=== PATIENT | male | born 1985 | race Caucasian/White ===

== ENCOUNTER 2016-07-17 07:58 | Emergency (ER) | payer SELFPAY ==
[2016-07-17] MEDS ORDERED: METOPROLOL 5 MG/5 ML VIAL IVP STA ×2 (08:20→09:03)
[2016-07-17] MEDS ORDERED: SODIUM CHLORIDE 0.9% 1,000 ML IV ONE ×2 (08:20→09:03)
[2016-07-17] MEDS ORDERED: METOPROLOL 5 MG/5 ML VIAL IVP ONE ×2 (08:29→09:01)
== END 2016-07-17 11:05 | disposition home or self-care (01) ==
DX: R00.0 Tachycardia, unspecified (principal); I48.91 Unspecified atrial fibrillation; I10 Essential (primary) hypertension; Z79.82 Long term (current) use of aspirin; Z87.891 Personal history of nicotine dependence

== ENCOUNTER 2017-03-19 | Emergency (ER) | payer OTHER ==
--- NOTE | 2017-03-19 00:10 | ED Physician Documentation ---
PD HPI CHEST PAIN - Stated complaint Stated Complaint: RAPID HEART RATE - History obtained from History obtained from: Patient - History of Present Illness Timing - onset: How many hours ago (1) Timing - onset during: Rest Timing - duration: Hours (1) Timing - details: Abrupt onset, Still present Quality: Tightness. No: Sharp, Stabbing Location: Left chest Radiation: No: Jaw, Neck, Back Improved by: No: Rest Worsened by: No: Inspiration, Movement Associated symptoms: General Weakness, Palpitations, Other (he says he did have a lot of diet coke over the weekend. No drubs/stimulant use.). No: Diaphoresis , Nausea, Feeling faint / dizzy Similar symptoms before: Diagnosis (paroxysmal atrial fib) Recently seen: Not recently seen (had been to Cardiology (Dr. Mohan in [place] after prior episode of atrial fib. He had ECHO and labs. No EPS studies by description. Has had follow up visits without change in meds. 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 denies: Nausea, Vomiting, Diarrhea Skin: denies: Rash, Lesions PD PAST MEDICAL HISTORY - Past Medical History Cardiovascular: Hypertension, Atrial fibrillation Respiratory: None Neuro: None Endocrine/Autoimmune: None - Past Surgical History Past Surgical History: No - Present Medications Home Medications: Ambulatory Orders Medication Instructions Recorded Confirmed Lisinopril 40 mg PO DAILY 02/20/14 03/19/17 Aspirin [Aspir 81] 81 mg PO DAILY 01/17/15 03/19/17 Diltiazem HCl [Diltiazem 24Hr ER] 300 mg PO DAILY 07/17/16 03/19/17 - Allergies Allergies/Adverse Reactions: Allergies Allergy/AdvReac Type Severity Reaction Status Date / Time No Known Drug Allergies Allergy Verified 02/20/14 15:24 - Social History Does the pt smoke?: No Smoking Status: Former smoker Does the pt drink ETOH?: No Does the pt have substance abuse?: No - Family History Family history: reports: CAD. denies: Sudden , Venous thromboembolism - Immunizations Immunizations are current?: Yes - POLST Patient has POLST: No PD ED PE NORMAL - Vitals Vital signs reviewed: Yes - General General: Alert and oriented X 3, No acute distress, Well developed/nourished - HEENT HEENT: Pharynx benign - Neck Neck: Supple, no meningeal sign, No adenopathy - Cardiac Cardiac: No murmur. No: RRR (irregular and fast at 160-170) - Respiratory Respiratory: Clear bilaterally - Abdomen Abdomen: Soft, Non tender - Derm Derm: Normal color, Warm and dry - Extremities Extremities: No deformity, No tenderness to palpate, Normal ROM s pain, No edema , No calf tenderness / cord - Neuro Neuro: Alert and oriented X 3, No motor deficit, Normal speech Results - Vitals Vitals: Vital Signs - 24 hr 03/19/17 03/19/17 03/19/17 00:11 00:30 00:40 Temperature 36.7 C Heart Rate 167 H 174 H 132 H Respiratory 20 18 18 Rate Blood Pressure 191/107 H 214/180 H 139/76 H O2 Saturation 97 98 97 03/19/17 03/19/17 03/19/17 00:59 01:11 01:56 Temperature 35.5 C L Heart Rate 136 H 75 118 H Respiratory 18 16 18 Rate Blood Pressure 133/63 H 131/90 H 132/61 H O2 Saturation 95 95 97 03/19/17 02:11 Temperature Heart Rate 95 Respiratory 18 Rate Blood Pressure 133/80 H O2 Saturation 97 Oxygen O2 Source Nasal cannula - EKG (time done) 00:09 Rate: Rate (enter#) (173) Rhythm: Atrial fibrillation QRS: Normal Ischemia: ST elevation c/w repol post cardioversion Rate: Rate (enter#) (80) Rhythm: NSR [place]: Normal Intervals: Normal [place] QRS: Normal Ischemia: Normal ST segments, ST elevation c/w repol, T wave inversion (inferior ). No: ST depression Compare to prior EKG: Unchanged from prior EKG (same morphology from July 2016) - Labs Labs: Laboratory Tests 03/19/17 03/19/17 00:17 00:17 WBC 10.9 H RBC 5.61 Hgb 16.1 Hct 46.5 MCV 82.9 MCH 28.7 MCHC 34.6 RDW 12.7 Plt Count 63 L MPV 11.7 H Neut # 6.3 Lymph # 3.0 [place] # 1.1 H Eos # 0.3 Baso # 0.2 H Absolute Nucleated RBC 0.01 Nucleated RBC % 0.1 Sodium 136 Potassium 3.7 Chloride 101 Carbon Dioxide 27 Anion Gap 8.0 BUN 17 Creatinine 0.7 Estimated GFR (MDRD) 130 Glucose 115 H Calcium 9.4 Magnesium 2.0 Total Bilirubin 0.7 AST 21 ALT 41 Alkaline Phosphatase 58 Total Protein 7.9 Albumin 4.9 Globulin 3.0 Albumin/Globulin Ratio 1.6 Lipase 36 Procedures - Cardioversion Attempt 1 Indication: Tachyarrhythmia Risks, benefits, alternatives explained to: Pt Prep: IV, O2, court monitor, Pulse ox, Airway equip Meds: Propofol CS via: Pads, AP approach Sync: Biphasic, 200j (unsuccessful jakob 100 J, but converted with 200 J.) Post cardioversion rhythm: NSR Complications: No: Contact burn, Apnea, Hypotension Performed by: ED MD Departure - Departure Disposition: 01 Home, Self Care Clinical Impression: Atrial fibrillation with rapid ventricular response Condition: Stable Record reviewed to determine appropriate education?: Yes Instructions: ED Afib Follow-Up: [facility] [Provider Group] Comments: Continue your current medications. Drink lots of fluids and stay well- hydrated. Avoid caffeinated beverages. Follow-up with the aws consultant in [place] as intended. Call their office tomorrow for an appointment. Return as needed.
[2017-03-19] MEDS ORDERED: SODIUM CHLORIDE 0.9% 1,000 ML IV ONE (00:23)
[2017-03-19] MEDS ORDERED: METOPROLOL 5 MG/5 ML VIAL IVP STA ×3 (00:23→01:06)
[2017-03-19] MEDS ORDERED: MAGNESIUM SULFATE 2 GRAM 2 GM/50 ML BAG IV ONE (00:24)
[2017-03-19 00:30] LABS: BASOPHILS # (AUTO) 0.2 10^3/uL (0.0-0.1); BASOPHILS % (AUTO) 1.8 %; EOSINOPHILS # (AUTO) 0.3 10^3/uL (0.0-0.7); EOSINOPHILS % (AUTO) 2.7 %; HGB - HEMOGLOBIN 16.1 g/dL (14.0-18.0); LYMPHOCYTES % (AUTO) 27.5 %; MEAN CORPUSCULAR HEMOGLOBIN 28.7 pg (27.0-31.0); MEAN CORPUSCULAR HGB CONC 34.6 g/dL (32.0-36.0); MEAN CORPUSCULAR VOLUME 82.9 fL (80.0-94.0); MEAN PLATELET VOLUME 11.7 fL (7.4-11.4); MONOCYTES # (AUTO) 1.1 10^3/uL (0.0-1.0); MONOCYTES % (AUTO) 9.7 %; NEUTROPHILS # (AUTO) 6.3 10^3/uL (1.5-6.6); NEUTROPHILS % (AUTO) 58.3 %; PLT - PLATELET COUNT 63 10^3/uL (130-450); RED BLOOD COUNT 5.61 10^6/uL (4.70-6.10); RED CELL DISTRIBUTION WIDTH 12.7 % (12.0-15.0); WHITE BLOOD COUNT 10.9 x10^3/uL (4.8-10.8)
[2017-03-19 00:38] LABS: ALBUMIN 4.9 g/dL (3.2-5.5); ALBUMIN/GLOBULIN RATIO 1.6 (1.0-2.2); BILIRUBIN,TOTAL 0.7 mg/dL (0.2-1.0); CALCIUM 9.4 mg/dL (8.5-10.3); CREATININE 0.7 mg/dL (0.6-1.2); TOTAL PROTEIN 7.9 g/dL (6.7-8.2)
[2017-03-19] MEDS ORDERED: PROPOFOL 200 MG/20 ML VIAL IVP STA (01:42)
[2017-03-19] MEDS ORDERED: KETOROLAC 60 MG/2 ML VIAL IVP STA (02:10)
[2017-03-19 03:09] VITALS: BP 123/77
== END 2017-03-19 02:50 | disposition home or self-care (01) ==
LOC: ED
DX: I48.91 Unspecified atrial fibrillation (principal); R94.31 Abnormal electrocardiogram [ECG] [EKG]; I10 Essential (primary) hypertension; Z79.82 Long term (current) use of aspirin; Z87.891 Personal history of nicotine dependence
CPT/HCPCS: 36415; 80053; 83690; 83735; 85025; 92960; 93005; 94770; 96365; 96375; 96376; 99284

== ENCOUNTER 2017-06-21 01:39 | Emergency (ER) | payer OTHER ==
[2017-06-21] MEDS ORDERED: SODIUM CHLORIDE 0.9% 1,000 ML IV ONE (01:50)
[2017-06-21 02:00] LABS: BASOPHILS % (AUTO) 0.4 %; EOSINOPHILS # (AUTO) 0.3 10^3/uL (0.0-0.7); EOSINOPHILS % (AUTO) 3.6 %; HGB - HEMOGLOBIN 14.7 g/dL (14.0-18.0); LYMPHOCYTES # (AUTO) 2.1 10^3/uL (1.5-3.5); LYMPHOCYTES % (AUTO) 25.9 %; MEAN CORPUSCULAR HEMOGLOBIN 29.1 pg (27.0-31.0); MEAN CORPUSCULAR HGB CONC 34.7 g/dL (32.0-36.0); MEAN CORPUSCULAR VOLUME 84.1 fL (80.0-94.0); MEAN PLATELET VOLUME 11.5 fL (7.4-11.4); MONOCYTES # (AUTO) 0.8 10^3/uL (0.0-1.0); MONOCYTES % (AUTO) 9.2 %; NEUTROPHILS % (AUTO) 60.9 %; PLT - PLATELET COUNT 71 10^3/uL (130-450); RED BLOOD COUNT 5.06 10^6/uL (4.70-6.10); RED CELL DISTRIBUTION WIDTH 12.8 % (12.0-15.0); WHITE BLOOD COUNT 8.2 x10^3/uL (4.8-10.8)
[2017-06-21 02:11] LABS: ALBUMIN 4.5 g/dL (3.2-5.5); ALBUMIN/GLOBULIN RATIO 1.6 (1.0-2.2); BILIRUBIN,TOTAL 0.4 mg/dL (0.2-1.0); CALCIUM 9.5 mg/dL (8.5-10.3); CREATININE 0.8 mg/dL (0.6-1.2); TOTAL PROTEIN 7.4 g/dL (6.7-8.2)
[2017-06-21 02:18] LABS: BILIRUBIN,URINE NEGATIVE (NEGATIVE); GLUCOSE, URINE (UA) NEGATIVE (NEGATIVE); KETONES,URINE (UA) NEGATIVE (NEGATIVE); LEUKOCYTE ESTERASE, URINE NEGATIVE (NEGATIVE); NITRITE,URINE NEGATIVE (NEGATIVE); OCCULT BLOOD,URINE NEGATIVE (NEGATIVE); PROTEIN,URINE NEGATIVE (NEGATIVE); UROBILINOGEN,URINE 0.2 (NORMAL) E.U./dL (NORMAL)
[2017-06-21 02:24] LABS: CLARITY,URINE CLEAR (CLEAR)
--- NOTE | 2017-06-21 02:27 | ED Physician Documentation ---
History of Present Illness - Stated complaint Stated Complaint: R SIDE OF BODY HEAVINESS - Chief complaint Chief Complaint: Neuro - History obtained from History obtained from: Patient, Family - History of Present Illness Timing: Today - Additonal information Additional information: Patient is a 31 year old male with a history of A fib who is presenting to the emergency department for "feeling heavy" Patient states that he woke up this morning and he was not feeling well. patient stated that felt like he might pass out. patient denied any headache, nausea, vomiting, weakness, fevers, chills or other symptoms. Review of Systems Constitutional: denies: Fever, Chills, Myalgias, Fatigue, Sweats Eyes: denies: Loss of vision, Decreased vision Ears: reports: Reviewed and negative Nose: denies: Congestion Throat: reports: Reviewed and negative Cardiac: denies: Chest pain / pressure, Palpitations, Calf pain Respiratory: denies: Dyspnea, Cough, Wheezing GI: denies: Abdominal Pain, Nausea, Vomiting : reports: Reviewed and negative Skin: reports: Reviewed and negative Neurologic: reports: Generalized weakness, Near syncope. denies: Focal weakness , Numbness, Syncope, Altered mental status, Headache, LOC Immunocompromised: denies: Immunocompromised PD PAST MEDICAL HISTORY - Past Medical History Cardiovascular: Hypertension, Atrial fibrillation Respiratory: None Neuro: None Endocrine/Autoimmune: None GI: None : None HEENT: None Psych: None Musculoskeletal: None Derm: None - Past Surgical History Past Surgical History: No - Present Medications Home Medications: Ambulatory Orders Medication Instructions Recorded Confirmed Lisinopril 40 mg PO DAILY 02/20/14 03/19/17 Aspirin [Aspir 81] 81 mg PO DAILY 01/17/15 03/19/17 Diltiazem HCl [Diltiazem 24Hr ER] 300 mg PO DAILY 07/17/16 03/19/17 - Allergies Allergies/Adverse Reactions: Allergies Allergy/AdvReac Type Severity Reaction Status Date / Time No Known Drug Allergies Allergy Verified 06/21/17 01:49 - Social History Does the pt smoke?: No Smoking Status: Never smoker Does the pt drink ETOH?: No Does the pt have substance abuse?: No - Immunizations Immunizations are current?: Yes - POLST Patient has POLST: No PD ED PE NORMAL - Vitals Vital signs reviewed: Yes - General General: Alert and oriented X 3, No acute distress, Well developed/nourished - HEENT HEENT: Atraumatic, PERRL, Moist mucous membranes - Neck Neck: Supple, no meningeal sign - Cardiac Cardiac: RRR, No murmur - Respiratory Respiratory: No respiratory distress, Clear bilaterally - Abdomen Abdomen: Soft, Non distended - Derm Derm: Normal color, No rash - Extremities Extremities: No deformity, No calf tenderness / cord - Neuro Neuro: Alert and oriented X 3, procurement professional 2-12 intact, No motor deficit, Normal speech Eye Opening: Spontaneous Motor: Obeys Commands Verbal: Oriented GCS Score: 15 Results - Vitals Vitals: Vital Signs - 24 hr 06/21/17 01:40 Temperature 368 C H Heart Rate 96 Respiratory 18 Rate Blood Pressure 165/88 H O2 Saturation 94 Oxygen O2 Source Room air - EKG (time done) 0146 Rate: Rate (enter#) (93) Rhythm: NSR [place]: Normal Intervals: Normal [place] QRS: Normal Ischemia: ST elevation c/w repol Compare to prior EKG: Unchanged from prior EKG - Labs Labs: Laboratory Tests 06/21/17 06/21/17 06/21/17 01:52 01:52 01:52 WBC 8.2 RBC 5.06 Hgb 14.7 Hct 42.5 MCV 84.1 MCH 29.1 MCHC 34.7 RDW 12.8 Plt Count 71 L MPV 11.5 H Neut # 5.0 Lymph # 2.1 [place] # 0.8 Eos # 0.3 Baso # 0.0 Absolute Nucleated RBC 0.00 Nucleated RBC % 0.0 Sodium 136 Potassium 3.8 Chloride 100 L Carbon Dioxide 26 Anion Gap 10.0 BUN 21 H Creatinine 0.8 Estimated GFR (MDRD) 111 Glucose 133 H Calcium 9.5 Total Bilirubin 0.4 AST 20 ALT 37 Alkaline Phosphatase 58 Troponin I < 0.04 Total Protein 7.4 Albumin 4.5 Globulin 2.9 Albumin/Globulin Ratio 1.6 Lipase 25 TSH Urine Color Urine Clarity Urine pH Ur Specific [place] Urine Protein Urine Glucose (UA) Urine Ketones Urine Occult Blood Urine Nitrite Urine Bilirubin Urine Urobilinogen Ur Leukocyte Esterase Ur Microscopic Review Urine Culture Comments Influenza A (Rapid) Influenza B (Rapid) Influenza Types A,B Ag 06/21/17 06/21/17 06/21/17 01:52 01:57 02:07 WBC RBC Hgb Hct MCV MCH MCHC RDW Plt Count MPV Neut # Lymph # [place] # Eos # Baso # Absolute Nucleated RBC Nucleated RBC % Sodium Potassium Chloride Carbon Dioxide Anion Gap BUN Creatinine Estimated GFR (MDRD) Glucose Calcium Total Bilirubin AST ALT Alkaline Phosphatase Troponin I Total Protein Albumin Globulin Albumin/Globulin Ratio Lipase TSH 4.56 Urine Color YELLOW Urine Clarity CLEAR Urine pH 6.0 Ur Specific [place] <=1.005 Urine Protein NEGATIVE Urine Glucose (UA) NEGATIVE Urine Ketones NEGATIVE Urine Occult Blood NEGATIVE Urine Nitrite NEGATIVE Urine Bilirubin NEGATIVE Urine Urobilinogen 0.2 (NORMAL) Ur Leukocyte Esterase NEGATIVE Ur Microscopic Review NOT INDICATED Urine Culture Comments NOT INDICATED Influenza A (Rapid) Negative Influenza B (Rapid) Negative Influenza Types A,B Ag - PD MEDICAL DECISION MAKING - ED course Complexity details: reviewed old records, reviewed results, re-evaluated patient , considered differential, d/w patient, d/w family ED course: Patient was seen and examined at bedside. patient was in no acute distress. ekg was performed and was normal sinus. IV access was gained and labs were drawn. patient was treated with fluid bolus. Patient's diagnostics were all within normal limits. Further discussion with the patient and his family sounds like he probably has sleep apnea, possibly he had an apneic episode. Patient was otherwise well appearing in no distress and was stable for discharge with outpatient follow up. Departure - Departure Disposition: 01 Home, Self Care Clinical Impression: Near syncope Condition: Good Instructions: ED Apnea Sleep Obstructive Follow-Up: primary,care provider [Other] Comments: Your diagnostics today were all within normal limits. It sounds as if you might have sleep apnea and you will need to follow up with your doctor for a sleep study. You may return to the emergency department at any time for new, worsening or uncontrollable symptoms.
[2017-06-21 03:05] VITALS: BP 159/84
== END 2017-06-21 03:05 | disposition home or self-care (01) ==
LOC: ED 01:39
DX: R55 Syncope and collapse (principal); I48.91 Unspecified atrial fibrillation; I10 Essential (primary) hypertension; Z79.82 Long term (current) use of aspirin
CPT/HCPCS: 36415; 80053; 81001; 81003; 83690; 84443; 84484; 85025; 87086; 87275; 87276; 93005; 96360; 99283

== ENCOUNTER 2017-07-19 23:50 | Emergency (ER) | payer OTHER ==
--- NOTE | 2017-07-20 01:16 | ED Physician Documentation ---
History of Present Illness - Stated complaint Stated Complaint: HIGH BLOOD PRESSURE - Chief complaint Chief Complaint: Cardiac - History obtained from History obtained from: Patient - History of Present Illness Timing: Today Pain level max: 0 Pain level now: 0 Improved by: no ameliorating factors Worsened by: no exacerbating factors - Additonal information Additional information: patient has been monitoring his blood pressure frequently at home. His concern is that the blood pressures have been running high but more concerning to him is that three times the readout was "irregular heart beat". He is concerned that this might represent an arrhythmia such as atrial fibrillation. He does not feel palpitations Review of Systems Eyes: denies: Loss of vision, Decreased vision Cardiac: reports: Reviewed and negative Respiratory: reports: Reviewed and negative PD PAST MEDICAL HISTORY - Past Medical History Cardiovascular: Hypertension, Atrial fibrillation Respiratory: None Neuro: None Endocrine/Autoimmune: None GI: None : None HEENT: None Psych: None Musculoskeletal: None Derm: None - Past Surgical History Past Surgical History: No - Present Medications Home Medications: Ambulatory Orders Medication Instructions Recorded Confirmed Lisinopril 40 mg PO DAILY 02/20/14 03/19/17 Aspirin [Aspir 81] 81 mg PO DAILY 01/17/15 03/19/17 Diltiazem HCl [Diltiazem 24Hr ER] 300 mg PO DAILY 07/17/16 03/19/17 - Allergies Allergies/Adverse Reactions: Allergies Allergy/AdvReac Type Severity Reaction Status Date / Time No Known Drug Allergies Allergy Verified 07/19/17 23:58 - Social History Does the pt smoke?: No Smoking Status: Never smoker Does the pt drink ETOH?: No Does the pt have substance abuse?: No - Immunizations Immunizations are current?: Yes - POLST Patient has POLST: No PD ED PE NORMAL - Vitals Vital signs reviewed: Yes - General General: Alert and oriented X 3, No acute distress, Well developed/nourished - HEENT HEENT: Moist mucous membranes - Neck Neck: Supple, no meningeal sign - Cardiac Cardiac: RRR, No murmur, No gallop, No rub - Respiratory Respiratory: No respiratory distress, Clear bilaterally Results - Vitals Vitals: Vital Signs - 24 hr 07/19/17 07/20/17 23:56 01:39 Temperature 36.9 C Heart Rate 91 96 Respiratory 16 18 Rate Blood Pressure 167/92 H 168/86 H O2 Saturation 98 95 Oxygen O2 Source Room air PD MEDICAL DECISION MAKING - ED course Complexity details: considered differential, d/w patient ED course: Patient's blood pressures are 167/92 and then 168/86. Pulse is regular and 80s. He is asymptomatic in ED. Emergent testing not indicated at this time. I encouraged him to follow up in outpatient setting with his doctor, as they might suggest changes in his current antihypertensive medication regimen Departure - Departure Disposition: 01 Home, Self Care Clinical Impression: Heart palpitations Hypertension Qualifiers: Hypertension type: unspecified Qualified Code(s): I10 - Essential (primary) hypertension Condition: Good Instructions: ED Hypertension Conf Out Of Control, ED Palpitations Discharge Date/Time: 07/20/17 01:40
[2017-07-20 01:40] VITALS: BP 168/86
== END 2017-07-20 01:40 | disposition home or self-care (01) ==
LOC: ED 23:50
DX: R00.2 Palpitations (principal); I10 Essential (primary) hypertension; Z79.82 Long term (current) use of aspirin
CPT/HCPCS: 99283

== ENCOUNTER 2017-12-10 10:29 | Outpatient (CLI) | payer OTHER | END 2017-12-10 10:30 | disposition home or self-care (01) | LOC: SC 10:29 | PROVIDERS: ATTEND Internal Medicine Pulmonary Disease | DX: G47.30 Sleep apnea, unspecified (principal); G47.10 Hypersomnia, unspecified; R06.83 Snoring; E66.9 Obesity, unspecified; Z68.37 Body mass index [BMI] 37.0-37.9, adult | CPT/HCPCS: 99203; 99212 ==

== ENCOUNTER 2018-01-17 03:27 | Outpatient (CLI) | payer OTHER | END 2018-01-17 03:28 | disposition EMS.NT | LOC: EMS 03:27 | PROVIDERS: ATTEND Surgery | DX: R20.2 Paresthesia of skin (principal); R06.02 Shortness of breath ==

== ENCOUNTER 2018-01-17 04:26 | Emergency (ER) | payer OTHER ==
--- NOTE | 2018-01-17 04:39 | ED Physician Documentation ---
History of Present Illness - Stated complaint Stated Complaint: AFIB - Chief complaint Chief Complaint: Cardiac - History obtained from History obtained from: Patient, Family - History of Present Illness Timing: Today - Additonal information Additional information: 32 y/o male with a history of afib with RVR awoke in the middle of the night with a pounding chest and blackburn over his entire body. He states this was more intense than usual for his palpitations but it did not last. He awoke, told his to call 911 and then his symptoms resolved prior to the arrival of medics. He has been in afib with RVR several times in the past 4 years and he has been cardioverted twice. He has had elevated blood pressure as well. He has an appointment to see the sleep doctor next week for a sleep study. 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 He is about to go to 6 days per week with the up coming holiday season. He denies use of caffeine or other stimulants and denies recent alcohol intake. Review of Systems Constitutional: denies: Fever, Chills, Myalgias Eyes: denies: Decreased vision Ears: denies: Ear pain Nose: denies: Rhinorrhea / runny nose, Congestion Throat: denies: Sore throat Cardiac: reports: Palpitations. denies: Chest pain / pressure Respiratory: denies: Dyspnea, Cough GI: reports: Abdominal Pain (at the margin of the ribs on the right with certain movements.). denies: Nausea, Vomiting : denies: Dysuria, Frequency Skin: denies: Rash, Lesions Musculoskeletal: denies: Neck pain, Back pain, Extremity pain Neurologic: denies: Generalized weakness, Focal weakness PD PAST MEDICAL HISTORY - Past Medical History Cardiovascular: Hypertension, Atrial fibrillation Respiratory: None Endocrine/Autoimmune: None GI: None : None HEENT: None Psych: None Musculoskeletal: None Derm: None - Past Surgical History Past Surgical History: No - Present Medications Home Medications: Ambulatory Orders Medication Instructions Recorded Confirmed Lisinopril 40 mg PO DAILY 02/20/14 01/17/18 Aspirin [Aspir 81] 81 mg PO DAILY 01/17/15 01/17/18 Diltiazem HCl [Diltiazem 24Hr ER] 300 mg PO DAILY 07/17/16 01/17/18 Carvedilol 6.25 mg PO BID 01/17/18 01/17/18 Doxazosin [Cardura] 1 tab PO DAILY 01/17/18 01/17/18 - Allergies Allergies/Adverse Reactions: Allergies Allergy/AdvReac Type Severity Reaction Status Date / Time No Known Drug Allergies Allergy Verified 01/17/18 04:34 - Social History Does the pt smoke?: No Smoking Status: Never smoker Does the pt drink ETOH?: No Does the pt have substance abuse?: No - Immunizations Immunizations are current?: Yes - POLST Patient has POLST: No PD ED PE NORMAL - Vitals Vital signs reviewed: Yes (hyertensive ) - General General: Alert and oriented X 3, No acute distress, Well developed/nourished - HEENT HEENT: Atraumatic, PERRL, EOMI - Neck Neck: Supple, no meningeal sign - Cardiac Cardiac: RRR, No murmur - Respiratory Respiratory: No respiratory distress, Clear bilaterally - Abdomen Abdomen: Soft, Non tender - Back Back: No CVA TTP, No spinal TTP - Derm Derm: Normal color, Warm and dry, No rash - Extremities Extremities: No deformity, No edema - Neuro Neuro: Alert and oriented X 3, paper steamer 2-12 intact, No motor deficit, No sensory deficit, Normal speech Eye Opening: Spontaneous Motor: Obeys Commands Verbal: Oriented GCS Score: 15 - Psych Psych: Normal mood, Normal affect Results - Vitals Vitals: Vital Signs - 24 hr 01/17/18 01/17/18 01/17/18 04:30 04:49 05:22 Temperature 36.9 C Heart Rate 74 79 76 Respiratory 19 17 12 Rate Blood Pressure 145/76 H 159/89 H 147/76 H Blood Pressure 159/89 H [Left] Blood Pressure 145/76 H [Right] O2 Saturation 99 98 98 Oxygen O2 Source Room air - EKG (time done) 0432 Rate: Rate (enter#) (72) Rhythm: NSR Ischemia: ST elevation c/w repol Compare to prior EKG: Changed from prior EKG (SPT 06-21-17 rate has decreased) Computer interpretation: Agree with computer - Labs Labs: Laboratory Tests 01/17/18 01/17/18 01/17/18 05:20 05:20 05:20 WBC 5.8 RBC 5.01 Hgb 14.6 Hct 41.9 L MCV 83.7 MCH 29.2 MCHC 34.8 RDW 13.1 Plt Count 67 L MPV 11.4 Neut # (Auto) 3.7 Lymph # (Auto) 1.3 L [place] # (Auto) 0.5 Eos # (Auto) 0.2 Baso # (Auto) 0.0 Absolute Nucleated RBC 0.00 Nucleated RBC % 0.0 Sodium 135 Potassium 4.1 Chloride 101 Carbon Dioxide 26 Anion Gap 8.0 BUN 14 Creatinine 0.7 Estimated GFR (MDRD) 129 Glucose 106 H Calcium 9.0 Total Bilirubin 0.9 AST 21 ALT 34 Alkaline Phosphatase 53 Troponin I < 0.04 Total Protein 7.5 Albumin 4.8 Globulin 2.7 Albumin/Globulin Ratio 1.8 Lipase 33 - Rads (name of study) 2 view chest Radiology: Prelim report reviewed (Impression: Normal two-view chest radiography.), EMP read indepedently, See rad report PD MEDICAL DECISION MAKING - ED course Complexity details: reviewed old records, reviewed results, re-evaluated patient, considered differential, d/w patient, d/w family ED course: 32 y/o male with a history of afib with RVR has had an episode tonight consistent with a self resolving episode of rapid afib. He has been overworked recently as a risk for this. He has follow up with the sleep doctor this coming week and he has follow up with cardiology following that. Departure - Departure Disposition: 01 Home, Self Care Clinical Impression: Heart palpitations, Thrombocytopenia Condition: Stable Instructions: Thrombocytopenia, ED Paroxysmal Atrial Flutter, ED Palpitations Follow-Up: JEANE MALONE [Physician No Access] - Forms: Activity restrictions
--- NOTE | 2018-01-17 05:25 | XRAY Report ---
Reason: chest pain Procedure Date: 01/17/2018 Accession Number: [id number] / [id number] Procedure: XR - Chest 2 View X-Ray CPT Code: 30378 FULL RESULT: EXAM: CHEST RADIOGRAPHY EXAM DATE: 01/17/2018 05:02 AM. CLINICAL HISTORY: Chest pain. COMPARISON: ABDOMEN/PELVIS W/ 01/17/2015 11:04 AM. TECHNIQUE: 2 views. FINDINGS: Lungs/Pleura: No focal opacities evident. No pleural effusion. No pneumothorax. Normal volumes. Mediastinum: Heart and mediastinal contours are unremarkable. Other: None. IMPRESSION: Normal 2-view chest radiography. [facility]
[2018-01-17 05:30] LABS: BASOPHILS % (AUTO) 0.6 %; EOSINOPHILS # (AUTO) 0.2 10^3/uL (0.0-0.7); EOSINOPHILS % (AUTO) 3.9 %; HGB - HEMOGLOBIN 14.6 g/dL (14.0-18.0); LYMPHOCYTES # (AUTO) 1.3 10^3/uL (1.5-3.5); LYMPHOCYTES % (AUTO) 22.7 %; MEAN CORPUSCULAR HEMOGLOBIN 29.2 pg (27.0-31.0); MEAN CORPUSCULAR HGB CONC 34.8 g/dL (32.0-36.0); MEAN CORPUSCULAR VOLUME 83.7 fL (80.0-94.0); MEAN PLATELET VOLUME 11.4 fL (7.4-11.4); MONOCYTES # (AUTO) 0.5 10^3/uL (0.0-1.0); NEUTROPHILS # (AUTO) 3.7 10^3/uL (1.5-6.6); NEUTROPHILS % (AUTO) 63.8 %; PLT - PLATELET COUNT 67 10^3/uL (130-450); RED BLOOD COUNT 5.01 10^6/uL (4.70-6.10); RED CELL DISTRIBUTION WIDTH 13.1 % (12.0-15.0); WHITE BLOOD COUNT 5.8 x10^3/uL (4.8-10.8)
[2018-01-17 05:44] LABS: ALBUMIN 4.8 g/dL (3.2-5.5); ALBUMIN/GLOBULIN RATIO 1.8 (1.0-2.2); BILIRUBIN,TOTAL 0.9 mg/dL (0.2-1.0); CREATININE 0.7 mg/dL (0.6-1.2); TOTAL PROTEIN 7.5 g/dL (6.7-8.2)
[2018-01-17 06:10] VITALS: BP 136/72
== END 2018-01-17 06:10 | disposition home or self-care (01) ==
LOC: ED 04:26
DX: R00.2 Palpitations (principal); D69.6 Thrombocytopenia, unspecified; I10 Essential (primary) hypertension; Z79.82 Long term (current) use of aspirin
CPT/HCPCS: 36415; 71046; 80053; 83690; 84484; 85025; 93005; 99284

== ENCOUNTER 2018-01-21 20:27 | Outpatient (CLI) | payer OTHER | END 2018-01-21 20:28 | disposition home or self-care (01) | LOC: SC 20:27 | PROVIDERS: ATTEND Internal Medicine Pulmonary Disease | DX: G47.33 Obstructive sleep apnea (adult) (pediatric) (principal) | CPT/HCPCS: 95810 ==

== ENCOUNTER 2018-04-07 07:27 | Emergency (ER) | payer OTHER ==
--- NOTE | 2018-04-07 07:58 | ED Physician Documentation ---
PD HPI HEADACHE - Stated complaint Stated Complaint: HEADACHE/NUMBNESS R ARM - Chief complaint Chief Complaint: Neuro - History obtained from History obtained from: Patient - History of Present Illness Timing - onset: How many years ago (1) Timing - onset during: Sleep Timing - duration: Seconds Timing - details: Abrupt onset, Now resolved Location: Left Quality: Other (sharp brief fapin) Associated symptoms: Numbness (To the right elbow--- present periodically maybe not related to the headache.). No: Fever, Stiff neck, Nausea, Vomiting, Weakness, Syncope, Seizure, Eye pain, Vision changes Improved by: Nothing Worsened by: Other (nothing) Contributing factors: Hypertension. 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 He states the pain is brief lasting less than 20 seconds and that last night it awoke him from sleep at about 4:00 in the morning and the intensity was more than usual and he is come to the emergency department now for evaluation. His head pain is resolved as it usually is and he has no other specific symptoms. He does have some numbness to his right elbow antecubital which has been present intermittently and does not seem related to his heacahce. Review of Systems Constitutional: denies: Fever Eyes: denies: Decreased vision Ears: denies: Ear pain Nose: denies: Rhinorrhea / runny nose, Congestion Throat: denies: Sore throat Cardiac: denies: Chest pain / pressure, Palpitations Respiratory: denies: Dyspnea, Cough GI: denies: Abdominal Pain, Nausea, Vomiting : denies: Dysuria, Frequency Skin: denies: Rash, Lesions Musculoskeletal: denies: Neck pain, Back pain, Extremity pain Neurologic: reports: Numbness, Headache. denies: Generalized weakness, Focal weakness, Difficulty speaking, Near syncope, Confused, Altered mental status, Head injury, LOC PD PAST MEDICAL HISTORY - Past Medical History Cardiovascular: Hypertension, Atrial fibrillation Respiratory: None Endocrine/Autoimmune: None GI: None : None HEENT: None Psych: None Musculoskeletal: None Derm: None - Past Surgical History Past Surgical History: No - Present Medications Home Medications: Ambulatory Orders Medication Instructions Recorded Confirmed Lisinopril 40 mg PO DAILY 02/20/14 04/07/18 Aspirin [Aspir 81] 81 mg PO DAILY 01/17/15 04/07/18 Diltiazem HCl [Diltiazem 24Hr ER] 300 mg PO DAILY 07/17/16 04/07/18 Carvedilol 6.25 mg PO BID 01/17/18 04/07/18 Doxazosin [Cardura] 1 tab PO DAILY 01/17/18 04/07/18 - Allergies Allergies/Adverse Reactions: Allergies Allergy/AdvReac Type Severity Reaction Status Date / Time No Known Drug Allergies Allergy Verified 04/07/18 07:36 - Social History Does the pt smoke?: No Smoking Status: Never smoker Does the pt drink ETOH?: No Does the pt have substance abuse?: No - Immunizations Immunizations are current?: Yes - POLST Patient has POLST: No PD ED PE NORMAL - Vitals Vital signs reviewed: Yes (hypertensive ) - General General: Alert and oriented X 3, No acute distress, Well developed/nourished - HEENT HEENT: Atraumatic, PERRL, EOMI, Ears normal, Moist mucous membranes, Pharynx be nign, Dentition benign - Neck Neck: Supple, no meningeal sign, No bony TTP - Cardiac Cardiac: RRR, No murmur - Respiratory Respiratory: No respiratory distress, Clear bilaterally - Abdomen Abdomen: Soft, Non tender - Back Back: No CVA TTP, No spinal TTP - Derm Derm: Normal color, Warm and dry, No rash - Extremities Extremities: No deformity, No edema - Neuro Neuro: Alert and oriented X 3, parts specialist 2-12 intact, No motor deficit, No sensory deficit, Normal speech Eye Opening: Spontaneous Motor: Obeys Commands Verbal: Oriented GCS Score: 15 - Psych Psych: Normal mood, Normal affect Results - Vitals Vitals: Vital Signs - 24 hr 04/07/18 07:33 Temperature 36.4 C L Heart Rate 87 Respiratory 16 Rate Blood Pressure 134/69 H O2 Saturation 98 Oxygen O2 Source Room air - Rads (name of study) CT head without Radiology: Prelim report reviewed (Impression: Normal head CT.), EMP read indepedently, See rad report PD MEDICAL DECISION MAKING - ED course Complexity details: reviewed old records, reviewed results, re-evaluated patient, considered differential, d/w patient ED course: 32-year-old male with a history of intermittent atrial fibrillation and hypertension has developed a pain in the left side of his scalp that is brief and lancinating and repeatedly happens. He has had symptoms once to twice per days for the past year. His symptoms are consistent with tic douloureux or trigeminal neuralgia and I discussed with him potential treatment for this if it is interfering with his lifestyle and he will follow-up with his primary. Departure - Departure Disposition: 01 Home, Self Care Clinical Impression: Tic douloureux Condition: Stable Instructions: ED Neuralgia Trigeminal Follow-Up: JEANE HARRIS [Primary Care Provider] - Comments: Tic or trigeminal neuralgia can be quite painful and can interfere with your usual daily activities. If this begins to happen too frequently medication is available for treatment and you will need to follow up with Dr. Harris.
--- NOTE | 2018-04-07 08:26 | CT Report ---
Reason: lancinating left parietal headache Procedure Date: 04/07/2018 Accession Number: [id number] / [id number] Procedure: CT - Head W/O CPT Code: FULL RESULT: EXAM: CT HEAD EXAM DATE: 04/07/2018 08:07 AM. CLINICAL HISTORY: Lancinating left parietal headache. COMPARISON: None. TECHNIQUE: Multiaxial CT images were obtained from the foramen magnum to the vertex. Reformats: Sagittal and coronal. IV contrast: None. In accordance with CT protocol optimization, one or more of the following dose reduction techniques were utilized for this exam: automated exposure control, adjustment of mA and/or KV based on patient size, or use of iterative reconstructive technique. FINDINGS: Parenchyma: No intraparenchymal hemorrhage. No evidence of mass, midline shift, or CT findings of infarction. Jean-white differentiation is distinct. Extraaxial Spaces: Normal for age. No subdural or epidural collections identified. Ventricles: Normal in size and position. Sinuses and Orbits: Imaged paranasal sinuses, orbits, and mastoids show no significant abnormality. Bones: No evidence of fracture or calvarial defect. Other: None. IMPRESSION: Normal head CT. RADIA
[2018-04-07 08:43] VITALS: BP 143/64
== END 2018-04-07 08:43 | disposition home or self-care (01) ==
LOC: ED 07:27
DX: G50.0 Trigeminal neuralgia (principal); I10 Essential (primary) hypertension; I48.91 Unspecified atrial fibrillation; Z79.82 Long term (current) use of aspirin
CPT/HCPCS: 70450; 99283

== ENCOUNTER 2018-04-14 10:19 | Outpatient (CLI) | payer OTHER | END 2018-04-14 10:20 | disposition home or self-care (01) | LOC: SC 10:19 | PROVIDERS: ATTEND Nurse Practitioner Family | DX: G47.33 Obstructive sleep apnea (adult) (pediatric) (principal) | CPT/HCPCS: 99212; 99214 ==

== ENCOUNTER 2018-05-27 16:16 | Outpatient (CLI) | payer OTHER | END 2018-05-27 16:17 | disposition home or self-care (01) | LOC: SC 16:16 | PROVIDERS: ATTEND Nurse Practitioner Family | DX: G47.33 Obstructive sleep apnea (adult) (pediatric) (principal) | CPT/HCPCS: 99212; 99214 ==

== ENCOUNTER 2018-08-05 11:06 | Outpatient (CLI) | payer OTHER | END 2018-08-05 11:07 | disposition home or self-care (01) | LOC: SC 11:06 | PROVIDERS: ATTEND Nurse Practitioner Family | DX: G47.33 Obstructive sleep apnea (adult) (pediatric) (principal) | CPT/HCPCS: 99212; 99214 ==

== ENCOUNTER 2021-07-28 06:23 | Emergency (ER) | payer BC, OTHER ==
[2021-07-28] MEDS ORDERED: diltiaZEM INJ 5 MG/ML VIAL IVP STA ×2 (06:47→07:20)
--- NOTE | 2021-07-28 07:09 | ED Physician Documentation ---
PD HPI CHEST PAIN - Stated complaint Stated Complaint: AFIB - Chief complaint Chief Complaint: Cardiac - History obtained from History obtained from: Patient - History of Present Illness Timing - onset: How many hours ago (few), Last night (during the night) Timing - onset during: Sleep (awoke with feeling of heart irregular and fast. Rufe okay going to bed last evening. Has had similar with atrial fib in the past only couple of times. Last episode was 3 years ago. Not currenlty on rhythm control meds. Has not been on anticoagulants due to infrequent episodes.) Timing - duration: Hours Timing - details: Abrupt onset, Still present Quality: Dull. No: Pressure, Tightness, Pain Location: Substernal Radiation: No: Jaw, Neck, Back Improved by: No: Rest Worsened by: No: Inspiration Associated symptoms: Palpitations (feeling like prior atrial fib episodes.). No: Shortness of air, Nausea Similar symptoms before: Diagnosis (atrial fib paroxysmal, with only few prior episodes. Has been cardioverted in the past. Has had resolution spontaneously or with meds as well.) Recently seen: Not recently seen Review of Systems Constitutional: denies: Fever, Chills Nose: denies: Rhinorrhea / runny nose, Congestion Throat: denies: Sore throat Cardiac: reports: Palpitations. denies: Pedal edema, Calf pain Respiratory: denies: Dyspnea, Cough, Wheezing GI: denies: Nausea, Vomiting, Diarrhea Neurologic: denies: Generalized weakness, Near syncope, Altered mental status PD PAST MEDICAL HISTORY - Past Medical History Cardiovascular: Hypertension, Atrial fibrillation Respiratory: None Endocrine/Autoimmune: None GI: None : None HEENT: None Psych: None Musculoskeletal: None Derm: None - Past Surgical History Past Surgical History: No - Present Medications Home Medications: Ambulatory Orders Medication Instructions Recorded Confirmed Aspirin [Aspir 81] 81 mg PO DAILY 01/17/15 07/28/21 diltiaZEM CD [Cardizem Cd] 120 mg PO DAILY 30 Days #30 cap 07/28/21 - Allergies Allergies/Adverse Reactions: Allergies Allergy/AdvReac Type Severity Reaction Status Date / Time No Known Drug Allergies Allergy Verified 07/28/21 07:05 - Social History Does the pt smoke?: No Smoking Status: Never smoker Does the pt drink ETOH?: No Does the pt have substance abuse?: No - Immunizations Immunizations are current?: Yes - POLST Patient has POLST: No PD ED PE NORMAL - Vitals Vital signs reviewed: Yes - General General: Alert and oriented X 3, No acute distress, Well developed/nourished - HEENT HEENT: Pharynx benign - Neck Neck: Supple, no meningeal sign, No adenopathy - Cardiac Cardiac: No murmur. No: RRR (irregular and fast) - Respiratory Respiratory: Clear bilaterally - Abdomen Abdomen: Soft, Non tender - Back Back: No CVA TTP - Derm Derm: Normal color, Warm and dry - Extremities Extremities: No tenderness to palpate, Normal ROM s pain, No edema, No calf tenderness / cord - Neuro Neuro: Alert and oriented X 3, No motor deficit, Normal speech Results - Vitals Vitals: Vital Signs - 24 hr 07/28/21 07/28/21 07/28/21 06:27 06:52 06:57 Temperature 37.1 C Heart Rate 127 H 148 H 107 H Respiratory 22 20 20 Rate Blood Pressure 106/50 L 154/98 H 130/75 O2 Saturation 96 99 96 07/28/21 07/28/21 07/28/21 06:58 07:03 07:25 Temperature Heart Rate 112 H 120 H 105 H Respiratory 22 20 20 Rate Blood Pressure 149/96 H 152/64 H 128/109 H O2 Saturation 95 95 97 07/28/21 07/28/21 07/28/21 07:28 07:30 07:34 Temperature Heart Rate 90 80 111 H Respiratory 19 20 21 Rate Blood Pressure 129/50 L 121/76 136/93 H O2 Saturation 98 99 97 07/28/21 07/28/21 08:30 08:54 Temperature Heart Rate 84 81 Respiratory 14 13 Rate Blood Pressure 133/88 H 142/80 H O2 Saturation 97 96 Oxygen O2 Source Room air - EKG (time done) 06:36 Rate: Rate (enter#) (146) Rhythm: Atrial fibrillation [place]: Normal QRS: LVH Ischemia: Normal ST segments. No: ST elevation c/w ischemia, ST depression 08:31 Rate: Rate (enter#) (78) Rhythm: NSR [place]: Normal Intervals: Normal MA QRS: Normal Ischemia: Normal ST segments, ST elevation c/w repol. No: ST depression, T wave inversion Computer interpretation: Disagree with computer - Labs Labs: Laboratory Tests 07/28/21 07/28/21 07/28/21 06:44 06:44 06:44 WBC 8.1 RBC 5.67 Hgb 16.7 Hct 48.4 MCV 85.4 MCH 29.5 MCHC 34.5 RDW 12.0 Plt Count 67 L MPV 14.4 H Neut # (Auto) 4.7 Lymph # (Auto) 2.3 [place] # (Auto) 0.7 Eos # (Auto) 0.3 Baso # (Auto) 0.1 Absolute Nucleated RBC 0.00 Nucleated RBC % 0.0 Sodium 141 Potassium 4.2 Chloride 108 Carbon Dioxide 23 Anion Gap 10.0 BUN 15 Creatinine 0.9 Estimated GFR (MDRD) 95 Glucose 109 H Calcium 8.9 Magnesium Total Bilirubin 0.7 AST 27 ALT 57 Alkaline Phosphatase 46 Troponin I High Sens 14.0 Total Protein 7.1 Albumin 4.2 Globulin 2.9 Albumin/Globulin Ratio 1.4 Lipase 78 H 07/28/21 06:44 WBC RBC Hgb Hct MCV MCH MCHC RDW Plt Count MPV Neut # (Auto) Lymph # (Auto) [place] # (Auto) Eos # (Auto) Baso # (Auto) Absolute Nucleated RBC Nucleated RBC % Sodium Potassium Chloride Carbon Dioxide Anion Gap BUN Creatinine Estimated GFR (MDRD) Glucose Calcium Magnesium 2.3 Total Bilirubin AST ALT Alkaline Phosphatase Troponin I High Sens Total Protein Albumin Globulin Albumin/Globulin Ratio Lipase Procedures - Procedural sedation Sedation prep: Informed consent, Time out completed, Last meal (last evening), PE performed, ASA 1 - healthy Sedation Medications: propofol Mallampati classification: I Patient status during sedation: Drowsy - Cardioversion 1 Indication: Tachyarrhythmia Risks, benefits, alternatives explained to: Pt Prep: IV, O2, assembler plastic boat, Pulse ox, Airway equip CS via: Pads Sync: Biphasic Performed by: ED MD PD MEDICAL DECISION MAKING - ED course Complexity details: re-evaluated patient (rate slowed but stil fib. discussed with patient the options and he prefers going to cardioversion. ), considered differential (parosyxmal atrial fib. He can tell onset time just few hours ago. Will try rate control. ), d/w patient Departure - Departure Disposition: 01 Home, Self Care Clinical Impression: Paroxysmal atrial fibrillation with rapid ventricular response Condition: Stable Record reviewed to determine appropriate education?: Yes Instructions: ED Paroxysmal Atrial Flutter Prescriptions: diltiaZEM CD [Cardizem Cd] 120 mg PO DAILY 30 Days #30 cap Comments: Stay well-hydrated. Regular diet. Rest today. I would suggest a daily use of diltiazem to help keep the heart rate regulated. I sent a prescription to [facility] pharmacy. We will go with the low-dose of 120 mg daily. Also baby aspirin daily. Given the infrequent proximal isms of this, you do not necessarily need to be on any stronger blood thinners. Return or follow-up if recurrent episodes. Forms: Activity restrictions Discharge Date/Time: 07/28/21 09:03
[2021-07-28 07:10] LABS: BASOPHILS # (AUTO) 0.1 10^3/uL (0.0-0.1); BASOPHILS % (AUTO) 0.6 %; EOSINOPHILS # (AUTO) 0.3 10^3/uL (0.0-0.7); EOSINOPHILS % (AUTO) 4.1 %; HCT - HEMATOCRIT 48.4 % (42.0-52.0); HGB - HEMOGLOBIN 16.7 g/dL (14.0-18.0); LYMPHOCYTES # (AUTO) 2.3 10^3/uL (1.5-3.5); LYMPHOCYTES % (AUTO) 28.1 %; MEAN CORPUSCULAR HEMOGLOBIN 29.5 pg (27.0-31.0); MEAN CORPUSCULAR HGB CONC 34.5 g/dL (32.0-36.0); MEAN CORPUSCULAR VOLUME 85.4 fL (80.0-94.0); MEAN PLATELET VOLUME 14.4 fL (7.4-11.4); MONOCYTES # (AUTO) 0.7 10^3/uL (0.0-1.0); MONOCYTES % (AUTO) 8.7 %; NEUTROPHILS # (AUTO) 4.7 10^3/uL (1.5-6.6); NEUTROPHILS % (AUTO) 57.8 %; PLT - PLATELET COUNT 67 10^3/uL (130-450); RED BLOOD COUNT 5.67 10^6/uL (4.70-6.10); WHITE BLOOD COUNT 8.1 x10^3/uL (4.8-10.8)
[2021-07-28 07:14] LABS: ALBUMIN 4.2 g/dL (3.2-5.5); ALBUMIN/GLOBULIN RATIO 1.4 (1.0-2.2); BILIRUBIN,TOTAL 0.7 mg/dL (0.2-1.0); CALCIUM 8.9 mg/dL (8.5-10.3); CREATININE 0.9 mg/dL (0.6-1.2); POTASSIUM 4.2 mmol/L (3.5-5.0); TOTAL PROTEIN 7.1 g/dL (6.7-8.2)
[2021-07-28] MEDS ORDERED: PROPOFOL 200 MG/20 ML VIAL IVP STA (07:44)
[2021-07-28] MEDS ORDERED: SODIUM CHLORIDE 0.9% 1,000 ML IV STA (07:44)
[2021-07-28] MEDS ORDERED: diltiaZEM CD 120 MG CAPSULE PO STA (08:44)
[2021-07-28 08:55] VITALS: BP 142/80
== END 2021-07-28 09:03 | disposition home or self-care (01) ==
LOC: ED 06:23
DX: I48.20 Chronic atrial fibrillation, unspecified (principal); I10 Essential (primary) hypertension
CPT/HCPCS: 36415; 80053; 83690; 83735; 84484; 85025; 92960; 93005; 99284

== ENCOUNTER 2022-09-15 05:55 | Emergency (ER) | payer BC ==
--- NOTE | 2022-09-15 06:08 | ED Physician Documentation ---
History of Present Illness - Stated complaint Stated Complaint: FAST HEART RATE - Chief complaint Chief Complaint: Cardiac - History obtained from History obtained from: Patient - Additonal information Additional information: HPI from patient. Patient complains of shortness of breath and rapid, irregular palpitations. Symptoms were sudden onset approximately 4 AM today, waking him from sleep. Denies chest pain. Patient has had many, similar episodes in the past and has been evaluated in this emergency department several times for same; his current symptoms feel similar to previous episodes of MEGHNA. He has been electrocardioverted in this emergency department on 3 occasions over the past 10 years. He has not on blood thinning medication due to the paroxysmal nature of the dysrhythmia. He has been evaluated by a shrinking machine operator in the outpatient setting. Review of Systems Cardiac: reports: Palpitations. denies: Chest pain / pressure, Pedal edema Respiratory: reports: Dyspnea GI: reports: Reviewed and negative Musculoskeletal: denies: Extremity swelling PD PAST MEDICAL HISTORY - Past Medical History Cardiovascular: Hypertension, Atrial fibrillation Respiratory: None Endocrine/Autoimmune: None GI: None : None HEENT: None Psych: None Musculoskeletal: None Derm: None - Past Surgical History Past Surgical History: No - Present Medications Home Medications: Ambulatory Orders Medication Instructions Recorded Confirmed Aspirin [Aspir 81] 81 mg PO DAILY 01/17/15 07/28/21 diltiaZEM CD [Cardizem Cd] 120 mg PO DAILY 30 Days #30 cap 07/28/21 09/15/22 Losartan Potassium 100 mg PO DAILY 09/15/22 09/15/22 - Allergies Allergies/Adverse Reactions: Allergies Allergy/AdvReac Type Severity Reaction Status Date / Time No Known Drug Allergies Allergy Verified 09/15/22 06:09 - Social History Does the pt smoke?: No Smoking Status: Never smoker Does the pt drink ETOH?: No Does the pt have substance abuse?: No - Immunizations Immunizations are current?: Yes - POLST Patient has POLST: No PD ED PE NORMAL - Vitals Vital signs reviewed: Yes - General General: Alert and oriented X 3, No acute distress, Well developed/nourished - Cardiac Cardiac: No murmur - Respiratory Respiratory: No respiratory distress, Clear bilaterally - Derm Derm: Normal color, Warm and dry - Extremities Extremities: No edema PD ED PE EXPANDED - Cardiac Cardiac: Tachy, Irregularly irregular Results - Vitals Vitals: Vital Signs - 24 hr 09/15/22 09/15/22 09/15/22 06:00 06:06 06:22 Temperature 36.0 C L Heart Rate 133 H 159 H 108 H Respiratory 22 20 16 Rate Blood Pressure 131/86 H 153/89 H 153/89 H O2 Saturation 98 99 95 09/15/22 09/15/22 09/15/22 06:24 06:30 06:48 Temperature Heart Rate 112 H 111 H 105 H Respiratory 19 21 20 Rate Blood Pressure 139/70 H 143/82 H 135/80 H O2 Saturation 96 93 92 09/15/22 09/15/22 09/15/22 07:06 07:22 07:32 Temperature Heart Rate 117 H 91 96 Respiratory 17 20 21 Rate Blood Pressure 124/61 114/60 124/84 H O2 Saturation 93 95 92 09/15/22 09/15/22 07:42 08:04 Temperature Heart Rate 100 128 H Respiratory 19 18 Rate Blood Pressure 124/84 H 124/78 O2 Saturation 95 95 Oxygen O2 Source Room air - EKG (time done) No standard instances EKG releavant findings:: EKG personally interpreted by author of this note. Relevant findings are: Rate: Rate (enter#) (163) Rhythm: Atrial fibrillation [employer]: Normal Ischemia: Normal ST segments, T wave inversion (III, aVF) - Labs Labs: Laboratory Tests 09/15/22 09/15/22 09/15/22 06:13 06:13 06:13 WBC 8.7 RBC 5.40 Hgb 15.5 Hct 46.6 MCV 86.3 MCH 28.7 MCHC 33.3 RDW 12.2 Plt Count 89 L MPV 13.0 H Neut # (Auto) 5.2 Lymph # (Auto) 2.2 [place] # (Auto) 0.8 Eos # (Auto) 0.4 Baso # (Auto) 0.0 Absolute Nucleated RBC 0.00 Nucleated RBC % 0.0 Sodium 137 Potassium 3.7 Chloride 106 Carbon Dioxide 23 Anion Gap 8.0 BUN 15 Creatinine 0.8 Estimated GFR (MDRD) 108 Glucose 115 H Calcium 8.9 Total Bilirubin 0.5 AST 27 ALT 49 Alkaline Phosphatase 60 Troponin I High Sens 10.0 Total Protein 6.8 Albumin 3.9 Globulin 2.9 Albumin/Globulin Ratio 1.3 Lipase 37 PD Medical Decision Making - ED course Complexity details: reviewed old records, reviewed results, re-evaluated patient, considered differential, d/w patient ED course: Patient presents in rapid atrial fibrillation. Cardiac-oriented work-up is ordered, including IV, blood tests with troponin, chest x-ray, and EKG. EKG confirms rapid atrial fibrillation but there are no findings on EKG to suggest A CS. Results of blood tests and chest x-ray are pending at the end of my shift, and care of patient is turned over to the oncoming ED physician (Dr. Negron). He is given 20 mg diltiazem IV shortly after presentation to ED; this significantly improved his rate to 100 but did not result in cardioversion
[2022-09-15] MEDS ORDERED: diltiaZEM INJ 5 MG/ML VIAL IVP STA ×2 (06:14→07:07)
[2022-09-15 06:24] LABS: BASOPHILS % (AUTO) 0.5 %; EOSINOPHILS # (AUTO) 0.4 10^3/uL (0.0-0.7); EOSINOPHILS % (AUTO) 4.3 %; HCT - HEMATOCRIT 46.6 % (42.0-52.0); HGB - HEMOGLOBIN 15.5 g/dL (14.0-18.0); LYMPHOCYTES # (AUTO) 2.2 10^3/uL (1.5-3.5); LYMPHOCYTES % (AUTO) 25.9 %; MEAN CORPUSCULAR HEMOGLOBIN 28.7 pg (27.0-31.0); MEAN CORPUSCULAR HGB CONC 33.3 g/dL (32.0-36.0); MEAN CORPUSCULAR VOLUME 86.3 fL (80.0-94.0); MONOCYTES # (AUTO) 0.8 10^3/uL (0.0-1.0); MONOCYTES % (AUTO) 8.7 %; NEUTROPHILS # (AUTO) 5.2 10^3/uL (1.5-6.6); NEUTROPHILS % (AUTO) 60.1 %; PLT - PLATELET COUNT 89 10^3/uL (130-450); RED CELL DISTRIBUTION WIDTH 12.2 % (12.0-15.0); WHITE BLOOD COUNT 8.7 x10^3/uL (4.8-10.8)
[2022-09-15 06:37] LABS: ALBUMIN 3.9 g/dL (3.2-5.5); ALBUMIN/GLOBULIN RATIO 1.3 (1.0-2.2); BILIRUBIN,TOTAL 0.5 mg/dL (0.2-1.0); CALCIUM 8.9 mg/dL (8.5-10.3); CREATININE 0.8 mg/dL (0.6-1.2); POTASSIUM 3.7 mmol/L (3.5-5.0); TOTAL PROTEIN 6.8 g/dL (6.7-8.2)
[2022-09-15] MEDS ORDERED: PROCAINAMIDE 100 MG/1 ML 10 ML MDV IV ONE (09:24)
--- NOTE | 2022-09-15 09:29 | ED Physician Documentation ---
ED Addendum - Addendum Addendum: 09/15/22 09:28 36 y/o male with intermittent afib not on anti-coagulation awoke with heaving chest and rapid heart rate consistent with afib with RVR from previous experience. The patient arrived here with rate of 120. Given dilt with reduction in heart rate but not lasting and no conversion. I spoke with patient with heart rate of 86 in afib and he indicated he could not feel this. I took this to mean he could not tell he was in afib. At that point I was reluctant to cardiovert wi th a risk of stroke in a patient without anticoagulation. We attempted procainamide again without effect. I consulted the patients reservation agent and the grails web application developer Dr. Milton recommended rate control and follow up for RENATA and cardioversion. I began to set this up and spoke to the patient again and specifically about symptoms and he indicates he could tell he was in afib with a normal heart rate but he did not have the heaving of his chest he can see with rapid rate. I changed gears then and made a decision to cardiovert with the patients consent. He was consented, given propofol 120mg and shocked once syncronized with 200J with resulting sinus rhythm. 09/15/22 09:29 09/15/22 11:22EKG: post conversion, time 11:58 rate 79 rhythm sinus normal axis and intervals wide spread ST elevation consistent with pericarditis. Since the earlier tracing today his rate has decreased and his rhythm has changed from afib with RVR to sinus. 09/15/22 12:14 Impression: Atrial fibrillation with rapid ventricular response Plan: after cardioversion the patient was discharged to home to take his medications regularly and follow-up with his reservation agent. 09/15/22 18:34 09/15/22 18:37 Procedures - Procedural sedation Sedation prep: Informed consent, Time out completed, PE performed, ASA 1 - healthy Sedation Medications: propofol Mallampati classification: I Patient status during sedation: Responds to tactile, Recovered uneventfully Sedation recovery: Recovered uneventfully, Slow recovery, Back to baseline Time in sedation (Minutes): 5 (120mg propofol) - Cardioversion - Major 1 Time of attempt: 11:45 Indication: Tachyarrhythmia, Clinically unstable, Other (failed rate control) Risks, benefits, alternatives explained to: Pt Prep: IV, O2, quality assurance monitor, Pulse ox, Airway equip CS via: Pads, AP approach Sync: Biphasic, 200j Post cardioversion rhythm: NSR Performed by: SADIE CONDE
[2022-09-15] MEDS ORDERED: SODIUM CHLORIDE 0.9% IV STA (09:31)
[2022-09-15] MEDS ORDERED: PROCAINAMIDE IV STA (09:31)
[2022-09-15] MEDS ORDERED: diltiaZEM INJ 125 MG in DEXTROSE 5% 100 ML IV STA (11:15)
[2022-09-15] MEDS ORDERED: diltiaZEM 30 MG TABLET PO STA (11:16)
[2022-09-15] MEDS ORDERED: PROPOFOL 200 MG/20 ML VIAL IVP STA (11:22)
[2022-09-15] MEDS ORDERED: PROPOFOL 200 MG/20 ML VIAL IVP ONE (11:39)
[2022-09-15 11:57] VITALS: BP 119/67
[2022-09-15] MEDS ORDERED: diltiaZEM CD 120 MG CAPSULE PO STA (11:57)
== END 2022-09-15 12:30 | disposition home or self-care (01) ==
LOC: ED 05:55
DX: I48.91 Unspecified atrial fibrillation (principal); I10 Essential (primary) hypertension; Z79.82 Long term (current) use of aspirin; Z79.899 Other long term (current) drug therapy
CPT/HCPCS: 36415; 80053; 83690; 84484; 85025; 92960; 93005; 96365; 96375; 96376; 99284; 99285; A9270; J2690; 94770